=== PATIENT | female | born 1975 | race African-American/Black ===

== ENCOUNTER 2024-01-05 10:37 | Inpatient (IN) | payer MEDICAID, OTHER ==
[~2024-01-05] VITALS: Ht 162.6 cm; Wt 102.2 kg
[2024-01-05] MEDS: KETOROLAC TROMETH 30 MG/ML 1ML VIAL IV ONE (11:14)
[2024-01-05] MEDS: SODIUM CHLORIDE 0.9% 1,000 ML IVB ONE (11:14)
[2024-01-05 11:27] LABS: Basophils # (auto) 0.1 10 ^3/uL (0-0.2); Basophils % (auto) 0.8 % (0.0-2.0); Eosinophils # (auto) 0.2 10 ^3/uL (0-0.8); Eosinophils % (auto) 2.3 % (0.0-7.0); Hematocrit 36.9 % (36.0-46.0); Hemoglobin 12.3 g/dL (12.2-16.2); Lymphocytes # (auto) 1.8 10 ^3/uL (0.4-5.4); Lymphocytes % (auto) 22.5 % (10.0-50.0); Mean Corpuscular Hemoglobin 28.7 pg (28.0-32.0); Mean Corpuscular Hgb Conc. 33.3 g/dL (32.0-36.0); Mean Corpuscular Volume 86.3 fL (80.0-100.0); Monocytes # (auto) 0.6 10 ^3/uL (0-1.3); Neutrophils # (auto) 5.5 10 ^3/uL (1.6-8.6); Neutrophils % (auto) 67.4 % (37.0-80.0); Nucleated Red Blood Cells % 0.1 %; Red Blood Cells 4.27 10^6/uL (4.0-5.20); Red Cell Distribution Width 14.2 % (11.8-14.3); White Blood Cell 8.1 10^3/uL (4.4-10.8)
[2024-01-05 11:42] LABS: Chloride 107 mmol/L (98-107); Sodium 139 mmol/L (136-145)
[2024-01-05 11:43] LABS: Anion Gap 5 (5-15); Carbon Dioxide 27 mmol/L (20-30)
[2024-01-05 11:44] LABS: Calcium 9.6 mg/dL (8.7-10.4)
[2024-01-05 11:48] LABS: Blood Urea Nitrogen 7 mg/dL (9-23); Glucose 93 mg/dL (74-106)
[2024-01-05] MEDS ORDERED: DOCUSATE SOD 100 MG CAP PO PRN (15:45)
[2024-01-05] MEDS ORDERED: MORPHINE SULFATE INJ 2 MG/ml SYRG IV PRN (15:45)
[2024-01-05] MEDS ORDERED: NITROGLYCERIN 0.4 MG SL TAB SL PRN (15:45)
[2024-01-05] MEDS ORDERED: BENA40TA71 PO (17:27)
[2024-01-05] MEDS ORDERED: OMEP1CAP70 PO (17:27)
[2024-01-05] MEDS ORDERED: PROP1TAB51 PO (17:27)
[2024-01-05] MEDS: PROPRANOLOL HCL 20 MG TAB PO SCH (20:59)
[2024-01-05] MEDS: ONDANSETRON HCL 4 MG/2 ML VIAL IV PRN (21:00)
[2024-01-05] MEDS: MORPHINE SULFATE INJ 2 MG/ml SYRG IV PRN (21:01)
[2024-01-05 21:04] VITALS: PULSE 78; RESP 20; O2SAT 96
[2024-01-06] MEDS: HYDROcodone-ACET 5/325MG TAB PO PRN (02:32)
[2024-01-06 04:37] LABS: Basophils # (auto) 0 10 ^3/uL (0-0.2); Basophils % (auto) 0.5 % (0.0-2.0); Eosinophils # (auto) 0.1 10 ^3/uL (0-0.8); Eosinophils % (auto) 1.4 % (0.0-7.0); Hematocrit 36.2 % (36.0-46.0); Hemoglobin 11.9 g/dL (12.2-16.2); Lymphocytes # (auto) 1.1 10 ^3/uL (0.4-5.4); Lymphocytes % (auto) 14.8 % (10.0-50.0); Mean Corpuscular Hemoglobin 28.5 pg (28.0-32.0); Mean Corpuscular Hgb Conc. 32.9 g/dL (32.0-36.0); Mean Corpuscular Volume 86.8 fL (80.0-100.0); Monocytes # (auto) 0.5 10 ^3/uL (0-1.3); Monocytes % (auto) 6.8 % (0.0-12.0); Neutrophils # (auto) 5.9 10 ^3/uL (1.6-8.6); Neutrophils % (auto) 76.5 % (37.0-80.0); Red Blood Cells 4.16 10^6/uL (4.0-5.20); White Blood Cell 7.7 10^3/uL (4.4-10.8)
[2024-01-06 05:06] LABS: Alanine Aminotransferase 13 U/L (7-40); Albumin 4.4 g/dL (3.2-4.8); Alkaline Phosphatase 82 U/L (46-116); Anion Gap 6 (5-15); Aspartate Aminotransferase 24 U/L (13-40); BUN/Creatinine Ratio 9.6 (10.0-20.0); Blood Urea Nitrogen 8 mg/dL (9-23); Calcium 9.3 mg/dL (8.5-10.1); Carbon Dioxide 27 mmol/L (20-30); Chloride 105 mmol/L (98-107); Glucose 109 mg/dL (74-106); Potassium 3.8 mmol/L (3.5-5.1); Sodium 138 mmol/L (136-145)
[2024-01-06 05:07] LABS: Bilirubin, Total 0.9 mg/dL (0.2-1.0); Total Protein 7.5 g/dL (5.7-8.2)
[2024-01-06] MEDS: BENAZEPRIL HCL 10 MG TAB PO SCH (09:11)
[2024-01-06] MEDS: PANTOPRAZOLE 40 MG TAB PO SCH (09:12)
[2024-01-06 09:26] VITALS: BP 172/110; PULSE 87; RESP 16; TEMP 98; O2SAT 97
[2024-01-06] MEDS: ACETAMINOPHEN 325 MG TAB PO PRN (10:54)
[2024-01-06] MEDS: NIFEdipine ER 30 MG TAB PO ONE (10:55)
[2024-01-06 12:05] LABS: Urine Bacteria FEW /hpf (None Seen); Urine Blood Negative /uL (Negative); Urine Clarity Clear (Clear); Urine Color Light-Yellow (Yellow); Urine Hyaline Cast FEW /lpf (0 - 2); Urine Protein, UAD Negative (Negative); Urine Specific Gravity 1.011 (1.001-1.035); Urine Urobilinogen Normal (Negative); Urine WBC <1 /hpf (0 - 5); Urine pH 6.5 (5.0-9.0)
[2024-01-06] MEDS: ACETAMINOPHEN/CODEINE#3 (300/30mg) TAB PO PRN (16:47)
[2024-01-06 17:25] VITALS: BP 126/81; PULSE 85; RESP 19; TEMP 98.4; O2SAT 96
[2024-01-06 20:00] VITALS: PULSE 80; RESP 18
[2024-01-06 21:00] VITALS: BP 144/82; PULSE 75; RESP 20; TEMP 97.2; O2SAT 99
[2024-01-06] MEDS: NITROFURANTOIN 100 mg CAP PO SCH (22:01)
[2024-01-06] MEDS: DICYCLOMINE HCL 10 MG CAP PO ONE (22:08)
[2024-01-06] MEDS: POLYETHYLENE GLYCOL 17 GM PWDR PO ONE (22:08)
[2024-01-07 05:00] VITALS: BP 143/96; PULSE 76; RESP 20; TEMP 98.1; O2SAT 96
[2024-01-07 05:04] VITALS: BP 158/56; PULSE 76; RESP 20; TEMP 98.1; O2SAT 93
[2024-01-07 08:00] VITALS: PULSE 91; RESP 18
[2024-01-07 09:00] VITALS: BP 139/92; PULSE 91; RESP 18; TEMP 98.4; O2SAT 96
[2024-01-07] MEDS: NIFEdipine ER 30 MG TAB PO SCH (09:25)
[2024-01-07] MEDS ORDERED: CIPR500T4 PO (09:48)
[2024-01-07] MEDS ORDERED: DICY10CA PO (09:48)
[2024-01-07] MEDS ORDERED: DOCU-94 PO (09:48)
[2024-01-07 13:00] VITALS: BP 131/85; PULSE 75; RESP 18; TEMP 98.1; O2SAT 96
[2024-01-07 15:55] VITALS: BP 139/92; PULSE 91; RESP 18; TEMP 98.4; O2SAT 96
== END 2024-01-07 17:00 | disposition home or self-care (01) | DRG 241 ==
LOC: ER 10:37 → OVERFLOW 15:37 → CENTRAL 01-06 09:00
PROVIDERS: ADMIT Nurse Practitioner Family; ATTEND Nurse Practitioner Acute Care
DX: K29.70 Gastritis, unspecified, without bleeding (principal); E11.9 Type 2 diabetes mellitus without complications; E66.01 Morbid (severe) obesity due to excess calories; I10 Essential (primary) hypertension; N39.0 Urinary tract infection, site not specified; Z82.49 Family history of ischemic heart disease and other diseases of the circulatory system; Z85.42 Personal history of malignant neoplasm of other parts of uterus; Z98.51 Tubal ligation status; Z68.38 Body mass index [BMI] 38.0-38.9, adult
CPT/HCPCS: 36415; 74176; 76775; 80048; 80053; 81001; 85025; 96361; 96374; G0378; J1885; J2405